=== PATIENT | female | born 1935 | race Caucasian/White ===

== ENCOUNTER → 2018-06-12 | Outpatient (CLI) | payer MEDICARE ==
[~2018-06-12] MED LIST: ACETAMINOPHEN500 MG PO; Aspir 8181 MG PO; CALCA500CH PO; CEPH500 PO; CLOP75 PO; Hair, Skin & N1 EACH PO; LORA1 PO; LORA10 PO; Lipitor20 MG PO; METO25ER PO; NITR.4SL SL; OMEP20ER PO; Pyridium100 MG PO; RANI150 PO; SIMV10 PO; Stool Softener100 MG PO; TICA90TA PO; VALS80 PO; ZOLP5 PO
== END | disposition home or self-care (01) ==
LOC: LAB 13:21 → LAB SHORT 13:21
PROVIDERS: Hospitalist
DX: Z12.72 Encounter for screening for malignant neoplasm of vagina (principal)
CPT/HCPCS: G0145

== ENCOUNTER → 2018-08-28 | Outpatient (CLI) | payer MEDICARE ==
[2018-08-28 15:29] LABS: Alanine Aminotransfer (ALT/SGP 26 U/L (12-78); Albumin, Blood 4.2 g/dL (3.4-5.0); Albumin/Globulin Ratio 1.6 (0.8-1.8); Alk Phos 50 U/L (50-136); Anion Gap 5 mmol/L (6-16); Aspartate Aminotrans (AST/SGOT 18 U/L (12-37); Bilirubin, Total 0.5 mg/dL (0.1-1.0); Blood Urea Nitrogen 16 mg/dL (8-24); CHOL/HDL RATIO 2.3; CO2, Blood 28 mmol/L (21-32); Calcium, Blood 9.7 mg/dL (8.5-10.1); Chloride, Blood 107 mmol/L (98-108); Cholesterol 150 mg/dL (50-200); Globulin, Blood 2.6 g/dL (2.2-4.0); Glomerular Filtration Rate >60 (60-); Glucose, Blood 89 mg/dL (70-99); HDL Cholesterol 64 mg/dL (>39); LDL/HDL RATIO 1.1; Low Density Lipoprotein Chol 71 mg/dL (0-110); Potassium, Blood 4.5 mmol/L (3.5-5.5); Sodium, Blood 140 mmol/L (136-145); Total Protein, Blood 6.8 g/dL (6.4-8.2); Triglycerides 75 mg/dL (30-160); Very Low Density Lipoprot Chol 15 mg/dL (6-32)
== END ==
LOC: LAB 14:11 → LAB SHORT 14:11
PROVIDERS: Hospitalist
DX: E78.5 Hyperlipidemia, unspecified (principal); I10 Essential (primary) hypertension
CPT/HCPCS: 80053; 80061

== ENCOUNTER 2018-11-28 10:15 | Emergency (ER) | payer MEDICARE ==
[~2018-11-28] VITALS: Ht 152.4 cm; Wt 49.9 kg
[2018-11-28] MEDS ORDERED: METO25ER PO (10:59)
[2018-11-28] MEDS ORDERED: AMLO5 PO ×2 (11:00→11:02)
[2018-11-28] MEDS ORDERED: LORA1 PO (11:00)
[2018-11-28] MEDS ORDERED: Zantac150 MG PO (11:00)
[2018-11-28] MEDS ORDERED: LO-DOSE ASPIRIN81 MG PO (11:00)
[2018-11-28] MEDS ORDERED: NITR.4SL (11:00)
[2018-11-28] MEDS ORDERED: Systane 0.3-0.415 ML (11:01)
[2018-11-28] MEDS ORDERED: Estrace Vagin42.5 GM PV (11:01)
[2018-11-28] MEDS ORDERED: Zofran4 MG PO (12:45)
== END 2018-11-28 13:00 | disposition home or self-care (01) ==
LOC: ER 10:15
DX: T44.0X1A Poisoning by anticholinesterase agents, accidental (unintentional), initial encounter (principal); R11.2 Nausea with vomiting, unspecified; I10 Essential (primary) hypertension; E78.5 Hyperlipidemia, unspecified; F41.9 Anxiety disorder, unspecified; M79.7 Fibromyalgia; Z79.82 Long term (current) use of aspirin; Z79.899 Other long term (current) drug therapy; I25.2 Old myocardial infarction; I25.10 Atherosclerotic heart disease of native coronary artery without angina pectoris; Z88.0 Allergy status to penicillin; Z88.1 Allergy status to other antibiotic agents; Z88.2 Allergy status to sulfonamides; Z88.5 Allergy status to narcotic agent; Z88.6 Allergy status to analgesic agent; Z88.8 Allergy status to other drugs, medicaments and biological substances
CPT/HCPCS: 36415; 93005; 93010; 96374; 96375; 99283-25; J2405

== ENCOUNTER → 2019-01-07 | Outpatient (CLI) | payer MEDICARE ==
[~2019-01-07] MED LIST changes: +AMLO5 PO; +Estrace Vagin42.5 GM PV; +LO-DOSE ASPIRIN81 MG PO; +NITR.4SL; +Systane 0.3-0.415 ML; +Zantac150 MG PO; +Zofran4 MG PO
[2019-01-08 14:38] LABS: Stool Occult Bld Immuno 1 Negative (NEGATIVE)
== END | disposition home or self-care (01) ==
LOC: LAB 06:30 → LAB SHORT 06:30
PROVIDERS: Family Medicine
DX: Z12.11 Encounter for screening for malignant neoplasm of colon (principal)
CPT/HCPCS: G0328

== ENCOUNTER → 2021-07-03 | Outpatient (CLI) | payer MEDICARE ==
[~2021-07-03] MED LIST changes: +HYOS.125 PO; +ONDA4ODT MM; +OXAYDO5 M1 PO; +TAMS.4ER PO; +ZOCOR20 MG PO
== END | disposition home or self-care (01) ==
LOC: LAB SHORT 15:00 → LAB 15:00
DX: R30.0 Dysuria (principal)
CPT/HCPCS: 87086

== ENCOUNTER → 2022-07-19 | Outpatient (CLI) | payer MEDICARE | LOC: LAB SHORT 14:30 → LAB 14:30 | DX: R30.0 Dysuria (principal) | CPT/HCPCS: 87086 ==